=== PATIENT | male | born 1990 | race Caucasian/White ===

== ENCOUNTER 2016-05-07 06:20 | Emergency (ER) | payer BC ==
[~2016-05-07] VITALS: Ht 175.3 cm; Wt 81.7 kg
[~2016-05-07 06:20] MED LIST: LEXAPRO5 MG PO; PROTONIX40 MG PO
[2016-05-07 06:54] LABS: EOSINOPHIL (%) 0.8 % (0-5); EOSINOPHIL COUNT 0.1 K/uL (0-0.3); HEMATOCRIT 48.3 % (38.0-50.0); IMMATURE GRANULOCYTE (%) 0.3 % (0.0-0.7); IMMATURE GRANULOCYTE COUNT 0.1 K/uL; INSTRUMENT ABS NEUTROPHIL CT 13.2 K/uL; LYMPHOCYTE COUNT 0.5 K/uL (1.0-2.8); MCH 30.5 PG (29.0-34.0); MEAN PLAT.VOLUME 10.2 uM^3 (9.0-12.4); MONOCYTE (%) 4.5 % (3-12); MONOCYTE COUNT 0.7 K/uL (0-0.8); NEUTROPHIL (%) 90.5 % (45-76); NEUTROPHIL COUNT 13.2 K/uL (1.8-6.4); PLATELET COUNT 236 K/uL (156-360); RBC DIS.WIDTH-CV 11.8 % (11.8-14.6); RBC DIS.WIDTH-SD 37.9 % (39-53); RED BLOOD COUNT 5.55 M/uL (4.00-5.50); WHITE BLOOD COUNT 14.6 K/uL (4.1-10.2)
[2016-05-07 07:06] LABS: CHLORIDE 106 mEq/L (99-109); POTASSIUM 3.8 mEq/L (3.7-5.4); SODIUM 139 mEq/L (136-147)
[2016-05-07 07:08] LABS: GLUCOSE 128 mg/dL (70-99)
[2016-05-07 07:10] LABS: ANION GAP 12 MEQ/L (2-14)
[2016-05-07 07:12] LABS: GFR ESTIMATE (CALCULATED) > 59 mL/min/
[2016-05-07 07:13] LABS: UREA NITROGEN (BUN) 18 mg/dL (9-23)
[2016-05-07 07:34] LABS: INTERNAL CONTROL VALID? YES
[2016-05-07 08:14] LABS: C DIFF TOXIN NEGATIVE (NEGATIVE)
[2016-05-07 08:16] LABS: PROBE CHECK PASS; SPECIMEN PROCESSING CONTROL PASS
[2016-05-07] MEDS ORDERED: FLAGYL500 MG PO (08:48)
[2016-05-07] MEDS ORDERED: BENTYL20 MG PO (08:48)
[2016-05-07] MEDS ORDERED: ZOFRAN ODT4 MG PO (08:48)
[2016-05-07] MEDS ORDERED: IMODIUM MS REL1 EACH PO (08:48)
[2016-05-07 08:55] VITALS: BP 116/59
== END 2016-05-07 08:55 | disposition home or self-care (01) ==
LOC: EME 06:20
PROVIDERS: Emergency Medicine
DX: K52.9 Noninfective gastroenteritis and colitis, unspecified (principal); Z88.1 Allergy status to other antibiotic agents
CPT/HCPCS: 80048; 83630; 85025; 87493; 87506; 99281; 99285; J1885; J2405; J7030